=== PATIENT | female | born 1950 | race Caucasian/White ===

== ENCOUNTER 2016-08-11 15:00 | Emergency (ER) | payer MEDICARE, OTHER ==
[~2016-08-11] VITALS: Ht 175.3 cm; Wt 80.0 kg
[~2016-08-11 15:00] MED LIST: BACT800T5 PO; CLOT1CRE TOP; MUPI2%T TOP
[2016-08-11 15:03] VITALS: BP 134/75; PULSE 86; RESP 15; TEMP 98.2; O2SAT 96
--- NOTE | 2016-08-11 16:49 | PD ---
HPI Chief Complaint: Edema Time Seen by Provider: 16:45 Travel History International Travel<30 days: No Contact w/Intl Traveler<30days: No Traveled to known affect area: No History of Present Illness HPI 66-year-old female presents to the emergency department for evaluation of right leg swelling and left wrist pain. The patient states that for the past 4 days she has had worsening swelling and pain in her right lower leg. States that the leg feels "heavy" and "sore." States that the pain is aggravated with walking, some of the swelling was alleviated with elevation last night. States that she has also had pain in the left wrist and swelling over the past week, states that the swelling in the wrist has almost resolved but the pain has persisted, aggravated with movement. Patient also mentioned she had an episode of hematuria 2 days ago. States that she had 2 episodes of heart palpitations lasting 10 minutes and resolving on its own earlier this week. She denies any fever, chills, nausea, vomiting, lightheadedness, dizziness, chest pain, shortness of breath, numbness or tingling, weakness, abdominal pain. The patient denies any history of blood clots or heart disease. She does admit to having to vein stripping surgeries in the past on the right leg for varicose veins. No other complaints. PFSH Past Medical History Depression: Yes Diminished Hearing: No Gastrointestinal Disorders: Yes (DIVERITCULITIS) ?: Not Menopausal: Yes Past Surgical History Other Surgery: Yes (Varicose vein stripping right leg x 2) Social History Alcohol Use: No Tobacco Use: No Substance Use: No Allergies-Medications (Allergen,Severity, Reaction): Coded Allergies: Contrast Media (Verified Allergy, Severe, Hypotension, 08/11/16) Reported Meds & Prescriptions Reported Meds & Active Scripts Active No Active Prescriptions or Reported Medications Review of Systems Except as stated in HPI: all other systems reviewed are Neg Physical Exam Narrative GENERAL: Well-nourished and well-developed pleasant female patient in no acute distress who is nontoxic appearing. SKIN: Warm and dry. HEAD: Normocephalic and atraumatic. EYES: No injection, drainage, or hyphema noted. PERRLA. EOMI. ENT: No nasal drainage noted. Oropharynx is clear. NECK: Supple and the trachea is midline. CARDIOVASCULAR: Regular rate and rhythm. RESPIRATORY: Breath sounds are equal bilaterally with no accessory muscle use, wheezing, rhonchi, or crackles. GASTROINTESTINAL: Abdomen is soft, non-tender, and nondistended. MUSCULOSKELETAL: Varicose veins noted in right leg. Right ankle and lower leg swollen with mild tenderness to palpation. No obvious deformities, cyanosis, or ecchymosis is present throughout the upper and lower extremities. Patient has full range of motion without any signs of neurovascular compromise. NEUROLOGICAL: Awake, alert, and oriented. Normal speech and gait. Cranial nerves are grossly intact. Data Data Last Documented VS Vital Signs Date Time Temp Pulse Resp B/P Pulse Ox O2 Delivery O2 Flow Rate FiO2 08/11/16 15:03 98.2 86 15 134/75 96 Orders Urinalysis - C+S If Indicated (08/11/16 16:43) Us Leg Venous Doppler (08/11/16 ) Electrocardiogram (08/11/16 16:43) Wrist, Complete ([id number]) (08/11/16 16:43) Labs Laboratory Tests Test 08/11/16 16:50 Urine Color YELLOW Urine Turbidity CLEAR Urine pH 6.5 Urine Specific [place] 1.020 Urine Protein NEG mg/dL Urine Glucose (UA) NEG mg/dL Urine Ketones NEG mg/dL Urine Occult Blood TRACE Urine Nitrite NEG Urine Bilirubin NEG Urine Urobilinogen LESS THAN 2.0 MG/DL Urine Leukocyte Esterase NEG Urine WBC 1 /hpf Urine Squamous Epithelial <1 /hpf Cells Microscopic Urinalysis Comment CULT NOT INDICATED MDM Medical Decision Making Medical Screen Exam Complete: Yes Emergency Medical Condition: Yes Differential Diagnosis Dependent edema versus varicose veins versus DVT versus cystitis versus other Narrative Course 66-year-old female presents to the emergency department for evaluation of right lower extremity swelling. Patient is afebrile, vital signs are stable. She is also complaining of left wrist pain, hematuria that happened a few days ago and 2 episodes of heart palpitations this week. Physical examination does show that her right lower extremity is swollen when compared to the left. She does have a history of varicose pains in the right leg and has had 2 previous vein stripping surgeries on the right leg. We'll do an ultrasound to rule out DVT. Urinalysis, EKG and x-ray of the left wrist as well. EKG shows normal sinus rhythm with no acute ST elevations or depressions. X-ray of the left wrist shows degenerative changes, no acute abnormalities. Urinalysis shows trace occult blood but is otherwise unremarkable. Ultrasound of the right lower extremity is negative for DVT. The patient that the edema in her right leg is likely secondary to varicose veins. Discussed all results with the patient. She will be given a prescription for naproxen and discussed supportive care. She is instructed to follow with her PCP. Patient verbalizes understanding and agreement with treatment plan. Diagnosis Primary Impression: Varicose veins of right lower extremity with edema Additional Impression: Left wrist pain Referrals: Primary Care Physician Patient Instructions: General Instructions Additional Instructions: Elevate right leg. Take medication as prescribed with food and a full glass of water. Follow-up with your Primary Care Physician. Return to the ED for any acute worsening of symptoms. Med/Other Pt SpecificInfo: Prescription(s) given Scripts Naproxen 500 Mg [id number] Mg PO BID 7 Days Ref 0 Prov:Charlie Porras MD 08/11/16 Disposition: 01 DISCHARGE HOME Condition: Stable Felicita Dey Aug 11, 2016 16:49
[2016-08-11 17:23] LABS: BLOOD, URINE TRACE (NEG); COMMENT (UR) CULT NOT INDICATED; CULTURE IF INDICATED CULT NOT INDICATED; GLUCOSE,URINE NEG (NEG); KETONE, URINE NEG (NEG); NITRITE,URINE NEG (NEG); PH, URINE 6.5 (5.0-8.5); SQUAMOUS EPITHELIAL CELL URINE <1 /hpf (0-5); URINE COLOR YELLOW (YELLW/STRAW)
--- NOTE | 2016-08-11 17:35 | RADRPT ---
EXAM DATE/TIME: 08/11/2016 17:30 [facility] COMPARISON: No previous studies available for comparison. INDICATIONS : Nontraumatic left wrist swelling for four days. MEDICAL HISTORY : None. SURGICAL HISTORY : None. ENCOUNTER: Initial ACUITY: 1 day PAIN SCORE: 110 LOCATION: Left wrist FINDINGS: Moderate degenerative changes are evident without fracture. Alignment anatomic. CONCLUSION: Negative for fracture. Moderate degenerative changes are noted. Wally Salgado MD FACR on August 11, 2016 at 17:33 Board Certified Radiologist. This report was verified electronically.
--- NOTE | 2016-08-11 18:03 | RADRPT ---
EXAM DATE/TIME: 08/11/2016 17:29 [facility] COMPARISON: No previous studies available for comparison. INDICATIONS : Right leg swelling. MEDICAL HISTORY : Diverticulitis. Depression. SURGICAL HISTORY : Right leg varicose vein stripping x2. ENCOUNTER: Initial ACUITY: 1 week PAIN SCORE: 2/10 LOCATION: Right leg. TECHNIQUE: Venous ultrasound of the leg was performed from the inguinal ligament to the proximal calf. Real-omari e, color Doppler and spectral tracing, compression and augmentation techniques were used. FINDINGS: There is normal compressibility of the deep venous system from the inguinal region to the proximal ca lf. No echogenic clot is seen in the lumen of the common femoral, femoral, popliteal, and posterior tibial veins. There is a normal response of the venous system to proximal and distal augmentation an d respiration. CONCLUSION: Negative for DVT . Wally Salgado MD FACR on August 11, 2016 at 18:01 Board Certified Radiologist. This report was verified electronically.
[2016-08-11] MEDS ORDERED: NAPR500T PO (18:23)
--- NOTE | 2016-08-12 19:36 | EKG ---
Date Performed: 08/11/2016 Time Performed: 17:08:24 PTAGE: 66 years EKG: Sinus rhythm POSSIBLE LEFT ATRIAL ENLARGEMENT POSSIBLE RIGHT VENTRICULAR CONDUCTION DELAY BORDERLINE ECG NO PREVIOUS TRACING DOCTOR: Jose Franco Interpretating Date/Time 08/12/2016 19:32:39
== END 2016-08-11 18:32 | disposition home or self-care (01) ==
LOC: NEPB 15:00
DX: I83.891 Varicose veins of right lower extremity with other complications (principal); M25.532 Pain in left wrist; F32.9 Major depressive disorder, single episode, unspecified
CPT/HCPCS: 73110; 81001; 93005; 93971

== ENCOUNTER 2017-03-18 14:45 | Emergency (ER) | payer MEDICARE, OTHER ==
[~2017-03-18] VITALS: Ht 175.3 cm; Wt 69.0 kg
[~2017-03-18 14:45] MED LIST changes: -BACT800T5 PO; -CLOT1CRE TOP; -MUPI2%T TOP; +NAPR500T PO
[2017-03-18 14:56] VITALS: BP 129/60; PULSE 84; RESP 16; TEMP 97.8; O2SAT 98
--- NOTE | 2017-03-18 15:55 | PD ---
HPI Chief Complaint: Edema Time Seen by Provider: 15:40 Travel History International Travel<30 days: No Contact w/Intl Traveler<30days: No Traveled to known affect area: No History of Present Illness HPI 66-year-old female patient presents to the ER today for 2 years history of right leg swelling that had worsened in the last 5 weeks, burning on urination and intermittent urinary incontinence for the last year to 2 years, which she states has been checked out in the past but has always been in the ED and she does not have a primary care doctor. She denies any fevers, chest pains, abdominal pains, new back pains, or any other issues. She denies any episodes of recent stool incontinence. Modifying Factors: None Associated Signs & Symptoms: Urinary symptoms for the last year or 2, right leg swelling for the last 2 years, symptoms worsened in the past few weeks Risk Factors: None PFSH Past Medical History Depression: Yes Diminished Hearing: No Gastrointestinal Disorders: Yes (DIVERITCULITIS) Tetanus Vaccination: > 5 Years Influenza Vaccination: Yes Menopausal: Yes Past Surgical History Other Surgery: Yes (Varicose vein stripping right leg x 2) Social History Alcohol Use: No Tobacco Use: No Substance Use: No Allergies-Medications (Allergen,Severity, Reaction): Coded Allergies: diatrizoate meglumine (Unverified Allergy, Severe, Hypotension, 03/18/17) gadobenic acid (Unverified Allergy, Severe, Hypotension, 03/18/17) gadodiamide (Unverified Allergy, Severe, Hypotension, 03/18/17) gadoteridol (Unverified Allergy, Severe, Hypotension, 03/18/17) iodixanol (Unverified Allergy, Severe, Hypotension, 03/18/17) iohexol (Unverified Allergy, Severe, Hypotension, 03/18/17) Reported Meds & Prescriptions Reported Meds & Active Scripts Active No Active Prescriptions or Reported Medications Review of Systems Except as stated in HPI: all other systems reviewed are Neg Physical Exam Narrative GENERAL: Well-developed elderly white female patient currently in mild distress. Awake and oriented 3. SKIN: Focused skin assessment warm/dry. HEAD: Atraumatic. Normocephalic. EYES: Pupils equal and round. No scleral icterus. No injection or drainage. ENT: No nasal bleeding or discharge. Mucous membranes pink and moist. NECK: Trachea midline. No JVD. CARDIOVASCULAR: Regular rate and rhythm. No murmur appreciated. RESPIRATORY: No accessory muscle use. Clear to auscultation. Breath sounds equal bilaterally. GASTROINTESTINAL: Abdomen soft, non-tender, nondistended. Hepatic and splenic margins not palpable. MUSCULOSKELETAL: No obvious deformities. No clubbing. No cyanosis. No edema. EXTREMITIES: No clubbing, cyanosis. There is notable right lower leg erythema and edema with tenderness on palpation. No joint tenderness, effusion, or edema noted. No calf tenderness. Bilateral Homans sign negative. NEUROLOGICAL: Awake and alert. No obvious cranial nerve deficits. Motor grossly within normal limits. Normal speech. PSYCHIATRIC: Appropriate mood and affect; insight and judgment normal. Data Data Last Documented VS Vital Signs Date Time Temp Pulse Resp B/P (MAP) Pulse Ox O2 Delivery O2 Flow Rate FiO2 03/18/17 14:56 97.8 84 16 129/60 (83) 98 Orders Orders Complete Blood Count With Diff (03/18/17 15:40) Comprehensive Metabolic Panel (03/18/17 15:40) Prothrombin Time / Inr (Pt) (03/18/17 15:40) Urinalysis - C+S If Indicated (03/18/17 15:40) Us Leg Venous Doppler (03/18/17 15:40) Labs Laboratory Tests Test 03/18/17 16:00 03/18/17 16:10 White Blood Count 5.1 TH/MM3 Red Blood Count 3.64 MIL/MM3 Hemoglobin 10.4 GM/DL Hematocrit 32.2 % Mean Corpuscular Volume 88.6 FL Mean Corpuscular Hemoglobin 28.5 PG Mean Corpuscular Hemoglobin Concent 32.1 % Red Cell Distribution Width 15.3 % Platelet Count 227 TH/MM3 Mean Platelet Volume 8.7 FL Neutrophils (%) (Auto) 52.4 % Lymphocytes (%) (Auto) 34.1 % Monocytes (%) (Auto) 5.8 % Eosinophils (%) (Auto) 6.3 % Basophils (%) (Auto) 1.4 % Neutrophils # (Auto) 2.7 TH/MM3 Lymphocytes # (Auto) 1.7 TH/MM3 Monocytes # (Auto) 0.3 TH/MM3 Eosinophils # (Auto) 0.3 TH/MM3 Basophils # (Auto) 0.1 TH/MM3 CBC Comment DIFF FINAL Differential Comment Prothrombin Time 10.7 SEC Prothromb Time International Ratio 1.0 RATIO Blood Urea Nitrogen 21 MG/DL Creatinine 0.73 MG/DL Random Glucose 78 MG/DL Total Protein 7.2 GM/DL Albumin 3.9 GM/DL Calcium Level 9.2 MG/DL Alkaline Phosphatase 76 U/L Aspartate Amino Transf (AST/SGOT) 18 U/L Alanine Aminotransferase (ALT/SGPT) 17 U/L Total Bilirubin 0.3 MG/DL Sodium Level 142 MEQ/L Potassium Level 3.4 MEQ/L Chloride Level 106 MEQ/L Carbon Dioxide Level 30.7 MEQ/L Anion Gap 5 MEQ/L Estimat Glomerular Filtration Rate 80 ML/MIN Urine Collection Type VOIDED Urine Color YELLOW Urine Turbidity CLEAR Urine pH 7.0 Urine Specific [place] 1.030 Urine Protein NEG mg/dL Urine Glucose (UA) 1000 OR GREATER mg/dL Urine Ketones NEG mg/dL Urine Occult Blood NEG Urine Nitrite NEG Urine Bilirubin NEG Urine Leukocyte Esterase NEG Urine Mucus FEW /lpf Microscopic Urinalysis Comment CULT NOT INDICATED MDM Medical Decision Making Medical Screen Exam Complete: Yes Emergency Medical Condition: Yes Medical Record Reviewed: Yes Interpretation(s) Laboratory Tests Test 03/18/17 16:00 03/18/17 16:10 Red Blood Count 3.64 MIL/MM3 (4.00-5.30) Hemoglobin 10.4 GM/DL (11.6-15.3) Hematocrit 32.2 % (35.0-46.0) Eosinophils (%) (Auto) 6.3 % (0.0-4.0) Blood Urea Nitrogen 21 MG/DL (7-18) Potassium Level 3.4 MEQ/L (3.5-5.1) Estimat Glomerular Filtration Rate 80 ML/MIN (>89) Urine Glucose (UA) 1000 OR GREATER mg/dL Urine Mucus FEW /lpf (OCC) Differential Diagnosis Leg edema: Dependent edema versus cellulitis versus DVT, urinary symptoms: UTI versus stress incontinence Narrative Course Ultrasound did not show any signs of DVT. Lab work did not show significant leukocytosis and no UTI. At this point, she has no focal neurological deficits and it appears that her symptoms of been going on for at least 1 or 2 years. At this point, I do not see any signs of acute processes. I told patient that she should follow-up for ongoing processes without a primary care physician. Return for new issues as needed. The plan has been discussed with her and she states understanding. In addition, her right leg does show some erythema which could be secondary to underlying mild cellulitis on top of chronic venous stasis. My plan would be to give her some antibiotics as precaution. Diagnosis Primary Impression: Cellulitis of right leg Med/Other Pt SpecificInfo: Prescription(s) given Scripts Cephalexin (Keflex) 500 Mg Cap 500 MG PO Q6H for Infection for 7 Days, CAP 0 Refills Prov: Reuben Mathews MD 03/18/17 Disposition: DISCHARGE HOME Condition: Stable Reuben Mathews MD Mar 18, 2017 15:55
[2017-03-18 16:08] LABS: AUTOMATED NEUTROPHIL # 2.7 TH/MM3 (1.8-7.7); BASOPHIL # 0.1 TH/MM3 (0-0.2); BASOPHIL % 1.4 % (0.0-2.0); EOSINOPHIL # 0.3 TH/MM3 (0-0.4); EOSINOPHIL % 6.3 % (0.0-4.0); HEMATOCRIT 32.2 % (35.0-46.0); HEMO FLAGS DIFF FINAL; LYMPH % 34.1 % (9.0-44.0); LYMPHOCYTE # 1.7 TH/MM3 (1.0-4.8); MEAN CELL VOLUME 88.6 FL (80.0-100.0); MEAN CORPUSCULAR HEMOGLOBIN 28.5 PG (27.0-34.0); MEAN CORPUSCULAR HGB CONC 32.1 % (32.0-36.0); MONO % 5.8 % (0.0-8.0); NEUT % 52.4 % (16.0-70.0); PLATELET COUNT 227 TH/MM3 (150-450); RED BLOOD COUNT 3.64 MIL/MM3 (4.00-5.30); RED CELL DISTRIBUTION WIDTH 15.3 % (11.6-17.2); WHITE BLOOD COUNT 5.1 TH/MM3 (4.0-11.0)
[2017-03-18 16:18] LABS: CHLORIDE 106 MEQ/L (98-107); POTASSIUM 3.4 MEQ/L (3.5-5.1); SODIUM (NA) 142 MEQ/L (136-145)
[2017-03-18 16:22] LABS: ANION GAP 5 MEQ/L (5-15); BICARBONATE 30.7 MEQ/L (21.0-32.0); BLOOD UREA NITROGEN 21 MG/DL (7-18)
[2017-03-18 16:23] LABS: PROTHROMBIN TIME - PATIENT 10.7 SEC (9.8-11.6)
[2017-03-18 16:25] LABS: ALT (GPT) 17 U/L (10-53); AST (GOT) 18 U/L (15-37); GLOMERULAR FILTRATION RATE 80 ML/MIN (>89)
[2017-03-18 16:25] LABS: BLOOD, URINE NEG (NEG); GLUCOSE,URINE 1000 OR GREATER mg/dL (NEG); KETONE, URINE NEG (NEG); NITRITE,URINE NEG (NEG)
[2017-03-18 16:27] LABS: TOTAL BILIRUBIN ADULT 0.3 MG/DL (0.2-1.0)
[2017-03-18 16:28] LABS: ALKALINE PHOSPHATASE 76 U/L (45-117)
--- NOTE | 2017-03-18 16:33 | RADRPT ---
EXAM DATE/TIME: 03/18/2017 16:07 [facility] COMPARISON: No previous studies available for comparison. INDICATIONS : Right leg swelling. MEDICAL HISTORY : Diverticulitis. Depression. SURGICAL HISTORY : Varicose vein stripping right leg X 2. ENCOUNTER: Subsequent ACUITY: 4 - 6 days PAIN SCORE: 4/10 LOCATION: Right leg TECHNIQUE: Venous ultrasound of the leg was performed from the inguinal ligament to the proximal calf. Real-omari e, color Doppler and spectral tracing, compression and augmentation techniques were used. FINDINGS: There is normal compressibility of the deep venous system from the inguinal region to the proximal ca lf. No echogenic clot is seen in the lumen of the common femoral, femoral, popliteal, and posterior tibial veins. There is a normal response of the venous system to proximal and distal augmentation an d respiration. CONCLUSION: Normal examination. Kin Chaidez MD on March 18, 2017 at 16:31 Board Certified Radiologist. This report was verified electronically.
[2017-03-18 16:42] LABS: METHOD OF COLLECTION VOIDED; URINE COLOR YELLOW (YELLW/STRAW)
[2017-03-18 16:49] LABS: MUCUS URINE FEW /lpf (OCC)
[2017-03-18 16:50] LABS: COMMENT (UR) CULT NOT INDICATED; CULTURE IF INDICATED CULT NOT INDICATED
[2017-03-18] MEDS ORDERED: CEPH-460 PO (16:54)
[2017-03-18 17:10] VITALS: BP 118/68; PULSE 88; RESP 16; O2SAT 98
== END 2017-03-18 17:15 | disposition home or self-care (01) ==
LOC: PHED 14:45
DX: L03.115 Cellulitis of right lower limb (principal)
CPT/HCPCS: 80053; 81001; 85025; 85610; 93971; 99285

== ENCOUNTER 2017-09-11 17:13 | Emergency (ER) | payer OTHER ==
[~2017-09-11 17:13] MED LIST changes: +CEPH-460 PO; -NAPR500T PO
== END 2017-09-11 17:25 | disposition left against medical advice (07) ==
LOC: PHED 17:13
DX: Z53.21 Procedure and treatment not carried out due to patient leaving prior to being seen by health care provider (principal)
CPT/HCPCS: 99281

== ENCOUNTER 2018-02-20 14:50 | Inpatient (IN) ==
[2018-02-20] MEDS ORDERED: Sod Chloride 0.9% Inj 1,000 ML IV.SIG ONE (15:19)
--- NOTE | 2018-02-20 15:23 | ED ---
HPI General Chief Complaint: Weakness Stated Complaint: Weakness Time Seen by Provider: 02/20/18 15:19 Source: patient Mode of arrival: ambulatory Limitations: no limitations History of Present Illness HPI Narrative: 67-year-old female patient presents to the ER today because she states that she has been out in the heat, walking around and started feeling weak and lightheaded. She states that she has been having some intermittent palpitations as well. She denies any chest pains, shortness of breath, vomiting , diarrhea, or other symptoms. She states that she has been foreclosed on is currently in between places to stay. She states that she feels fairly tired and has been nodding off because she has been trying to find places to stay overnight. Related Data Allergies Allergy/AdvReac Type Severity Reaction Status Date / Time diatrizoate meglumine Allergy Severe Hypotension Unverified 03/18/17 14:58 gadobenic acid Allergy Severe Hypotension Unverified 03/18/17 14:58 gadodiamide Allergy Severe Hypotension Unverified 03/18/17 14:58 gadoteridol Allergy Severe Hypotension Unverified 03/18/17 14:58 iodixanol Allergy Severe Hypotension Unverified 03/18/17 14:58 iohexol Allergy Severe Hypotension Unverified 03/18/17 14:58 Review of Systems Except as stated in HPI: all other systems reviewed are negative PMFSH History History Provided By: Patient Social History Social History Substance History: No History of Abuse Second Hand Smoke Exposure: No Smoking Status: Never smoker How Often Do You Have a Drink Containing Alcohol: Never Recent Travel in [facility] within the Last 8 Weeks: No Recent Out of Country Travel within the Last 8 Weeks: No Exam Narrative Exam Narrative: GENERAL: Well-developed elderly female patient currently in mild distress. Awake and oriented 3. SKIN: Focused skin assessment warm/dry. HEAD: Atraumatic. Normocephalic. EYES: Pupils equal and round. No scleral icterus. No injection or drainage. ENT: No nasal bleeding or discharge. Mucous membranes pink and moist. NECK: Trachea midline. No JVD. CARDIOVASCULAR: Regular rate and rhythm. No murmur appreciated. RESPIRATORY: No accessory muscle use. Clear to auscultation. Breath sounds equal bilaterally. GASTROINTESTINAL: Abdomen soft, non-tender, nondistended. Hepatic and splenic margins not palpable. MUSCULOSKELETAL: No obvious deformities. No clubbing. No cyanosis. No edema. NEUROLOGICAL: Awake and alert. No obvious cranial nerve deficits. Motor grossly within normal limits. Normal speech. PSYCHIATRIC: Appropriate mood and affect; insight and judgment normal. Course Hospital Course: Lab work looks quite abnormal, hyponatremic, hypokalemic, hypochloremic, hypocalcemic. IV fluids, potassium supplementation, and calcium supplementation were ordered for the patient. At this point, plan would be to admit the patient for further evaluation and treatment. Case was discussed with Dr. Daugherty who would like the patient to get a repeat lab work just to make sure the derangements are real. He accepts the patient for admission. Initial Documented Vital Signs Temperature 98.4 F 02/20/18 15:22 Pulse Rate 81 02/20/18 15:22 Respiratory Rate 18 02/20/18 15:22 Blood Pressure 122/62 02/20/18 15:22 Pulse Oximetry 97 02/20/18 15:22 Last Documented Vital Signs Temperature 98.4 F 02/20/18 15:22 Pulse Rate 79 02/20/18 15:25 Respiratory Rate 18 02/20/18 15:25 Blood Pressure 122/62 02/20/18 15:25 Pulse Oximetry 97 02/20/18 15:25 Medical Decision Making Differential Diagnosis Differential Diagnosis: Dehydration versus electrolyte abnormalities versus dysrhythmias Lab Data Result diagrams: 02/20/18 15:25 02/20/18 15:25 Lab Results 02/20/18 02/20/18 Range/Units 15:25 15:25 WBC 5.6 (4.0-11.0) th/mm3 RBC 3.60 L (4.00-5.30) mil/mm3 Hgb 10.2 L (11.6-15.3) gm/dL Hct 31.1 L (35.0-46.0) % MCV 86.6 (80.0-100.0) fL MCH 28.5 (27.0-34.0) pg MCHC 32.9 (32.0-36.0) % RDW 14.6 (11.6-17.2) % Plt Count 235 (150-450) th/mm3 MPV 9.5 (7.0-11.0) fL Neut % (Auto) 68.7 (16.0-70.0) % Lymph % (Auto) 21.8 (9.0-44.0) % [place] % (Auto) 6.1 (0.0-8.0) % Eos % (Auto) 2.2 (0.0-4.0) % Baso % (Auto) 1.2 (0.0-2.0) % Neut # (Auto) 3.9 (1.8-7.7) th/mm3 Lymph # (Auto) 1.2 (1.0-4.8) th/mm3 [place] # (Auto) 0.3 (0.0-0.9) th/mm3 Eos # (Auto) 0.1 (0.0-0.4) th/mm3 Baso # (Auto) 0.1 (0.0-0.2) th/mm3 WBC Differential . Differential Comment Auto diff final Sodium 151 H (136-145) meq/L Potassium 2.1 L* (3.5-5.1) meq/L Chloride 123 H (98-107) meq/L Carbon Dioxide 20.6 L (21.0-32.0) meq/L Anion Gap 7 (5-15) meq/L BUN 14 (7-18) mg/dL Creatinine 0.51 (0.50-1.00) mg/dL Estimated GFR Greater than 89 (>89) mL/min Random Glucose 116 H (74-106) mg/dL Calcium 5.6 L* (8.5-10.1) mg/dL Prot Corrected Calcium 6.9 L* (8.5-10.1) mg/dL Troponin I Less than 0.02 L (0.02-0.05) ng/mL Total Protein 4.1 L (6.4-8.2) g/dL Discharge Plan Discharge Disposition Patient Disposition: 30 Still Patient Discharge Condition Condition: Stable Discharge Details Anticipated Discharge Date: 02/20/18 Diagnosis: Dehydration, Acute hypernatremia, Hypokalemia Physicians Team ED Provider: Reuben Mahtews Primary Care Provider: UNKNOWN, Discharge Interventions Interventions: Vital Signs Last Done: 02/20/18 17:02 Status ED Status: With Doctor
[2018-02-20 15:47] LABS: Baso # (Auto) 0.1 th/mm3 (0.0-0.2); Baso % (Auto) 1.2 % (0.0-2.0); Eos # (Auto) 0.1 th/mm3 (0.0-0.4); Eos % (Auto) 2.2 % (0.0-4.0); Hematocrit 31.1 % (35.0-46.0); Hemoglobin 10.2 gm/dL (11.6-15.3); Lymph # (Auto) 1.2 th/mm3 (1.0-4.8); Lymph % (Auto) 21.8 % (9.0-44.0); Mean Corpuscular HGB Conc 32.9 % (32.0-36.0); Mean Corpuscular Hemoglobin 28.5 pg (27.0-34.0); Mean Corpuscular Volume 86.6 fL (80.0-100.0); Mean Platelet Volume 9.5 fL (7.0-11.0); Mono # (Auto) 0.3 th/mm3 (0.0-0.9); Mono % (Auto) 6.1 % (0.0-8.0); Neut # (Auto) 3.9 th/mm3 (1.8-7.7); Neut % (Auto) 68.7 % (16.0-70.0); Platelet Count 235 th/mm3 (150-450); Red Cell Distribution Width 14.6 % (11.6-17.2); White Blood Count 5.6 th/mm3 (4.0-11.0)
[2018-02-20 16:14] LABS: Anion Gap 7 meq/L (5-15); Blood Urea Nitrogen 14 mg/dL (7-18); Calcium 5.6 mg/dL (8.5-10.1); Carbon Dioxide 20.6 meq/L (21.0-32.0); Chloride 123 meq/L (98-107); Glomerular Filtration Rate Greater Than 89 mL/min (>89); Glucose,Random 116 mg/dL (74-106); Sodium 151 meq/L (136-145)
[2018-02-20 16:20] LABS: Potassium 2.1 meq/L (3.5-5.1)
[2018-02-20] MEDS ORDERED: Potassium Chloride 25 MEQ Effervescent Tablet PO ONE (16:32)
[2018-02-20 16:36] LABS: Total Protein 4.1 g/dL (6.4-8.2)
[2018-02-20] MEDS ORDERED: Calcium Gluconate Inj 2 GM in Sodium Chlor 0.9% Inj 100 ML IV.SIG ONE (16:54)
[2018-02-20] MEDS: Potassium Chloride Inj 30 MEQ in Sod Chloride 0.9% Inj 1,000 ML IV.CONT SCH (17:15)
[2018-02-20] MEDS ORDERED: Temazepam 15 MG Capsule PO PRN (17:24)
[2018-02-20] MEDS ORDERED: KCL 20 mEq/D5W/NaCl 0.45% Inj 1,000 ML IV.CONT SCH (17:30)
[2018-02-20 17:57] LABS: Alanine Aminotransferase 19 U/L (10-53); Albumin 3.6 g/dL (3.4-5.0); Alkaline Phosphatase 102 U/L (45-117); Anion Gap 7 meq/L (5-15); Aspartate Aminotransferase 26 U/L (15-37); Blood Urea Nitrogen 19 mg/dL (7-18); Carbon Dioxide 26.3 meq/L (21.0-32.0); Chloride 108 meq/L (98-107); Glomerular Filtration Rate 58 mL/min (>89); Glucose,Random 104 mg/dL (74-106); Potassium 3.7 meq/L (3.5-5.1); Sodium 141 meq/L (136-145); Total Protein 7.2 g/dL (6.4-8.2)
[2018-02-20] MEDS ORDERED: Bisacodyl 10 MG Supp RECTAL PRN (18:00)
--- NOTE | 2018-02-20 19:11 | P.HPIM ---
History of Present Illness Primary Care Physician: UNKNOWN History of Present Illness: 67-year-old female with no significant past medical history other than varicose veins in the right lower extremity who presents with a 1 day history of lightheadedness and somnolence. She was recently evicted from her house due to foreclosure on Friday, has been staying at hotels and spent all day walking up and down the road, waiting at the bus stop, waiting for car to get fixed. sHe says she was sweating profusely as a temperature outside was 92. She denies any fevers, chills, chest pain, shortness of breath. She does endorse lightheadedness, fatigue, somnolence today. Denies passing out. She denies any nausea, vomiting. Inpatient Certification: I certify that the inpatient services were ordered in accordance with Medicare regulations governing the order. This includes certification that hospital inpatient services are reasonable and necessary and in the case of services not specified as inpatient-only under 42 CFR 419.22(n), that they are appropriately provided as inpatient services in accordance to with the 2-midnight benchmark under 43 CFR 412.3(e) Estimated Total Length of Stay (Days): 2 Plans for Post Hospital Care: Home Review of Systems All other systems reviewed negative except as stated in HPI PMFSH - History History Provided By: Patient - Tobacco History Second Hand Smoke Exposure: No Tobacco Use In Past 30 Days: No Smoking Status: Never smoker - Alcohol History How Often Do You Have a Drink Containing Alcohol: Never - Substance Use History Substance History: No History of Abuse - Travel History Recent Travel in the [place] Within the Last 8 Weeks: No Recent Travel Out of the Country Within the Last 8 Weeks: No - Immunization History Tetanus Immunization: Unsure Hx Influenza Vaccine This Season: Yes Medications and Allergies Active Medications: Active Medications Al Hydroxide/Mg Hydroxide (Milk Of Magnesia Liq) 30 ml PO Q12HR PRN PRN Reason: Mild Constipation Bisacodyl (Dulcolax Supp) 10 mg RECTAL DAILY PRN PRN Reason: SEVERE CONSITIPATION Potassium Chloride 30 meq/ (Sodium Chloride) 1,015 mls @ 125 mls/hr IV.CONT .Q8H8M [facility] Last Admin: 02/20/18 17:15 Dose: 125 mls/hr Potassium Chloride/Dextrose/Sod Cl (D5w/1/2ns + Kcl 20 Meq Inj) 1,000 mls @ 100 mls/hr IV.CONT .Q10H TRISH Lactulose (Lactulose Liq) 30 ml PO DAILY PRN PRN Reason: SEVERE CONSITIPATION Senna/Docusate Sodium (Lorin-Colace) 1 tab PO BID TRISH Sennosides (Senokot) 17.2 mg PO Q12HR PRN PRN Reason: Moderate Constipation Sodium Chloride (Ns Flush) 2 ml IV.FLUSH PRN PRN PRN Reason: FLUSH AFTER USING IV ACCESS Temazepam (Restoril) 15 mg PO HS PRN PRN Reason: INSOMNIA Allergies Allergy/AdvReac Type Severity Reaction Status Date / Time diatrizoate meglumine Allergy Severe Hypotension Unverified 03/18/17 14:58 gadobenic acid Allergy Severe Hypotension Unverified 03/18/17 14:58 gadodiamide Allergy Severe Hypotension Unverified 03/18/17 14:58 gadoteridol Allergy Severe Hypotension Unverified 03/18/17 14:58 iodixanol Allergy Severe Hypotension Unverified 03/18/17 14:58 iohexol Allergy Severe Hypotension Unverified 03/18/17 14:58 Exam Vital signs: Vital Signs 02/20/18 15:22 02/20/18 15:25 02/20/18 17:02 Temperature 98.4 F Pulse Rate 81 79 75 Respiratory Rate 18 18 18 Blood Pressure 122/62 122/62 124/68 Pulse Oximetry 97 97 97 Intake & Output 02/20/18 02/20/18 02/21/18 06:59 18:59 06:59 Intake Total 1000 / 1000 Balance 1000 / 1000 Weight 74.843 kg Intake: IV 1000 / 1000 NS Inj 1,000 ML @ Wide Open IV. 1000 / 1000 SIG BOLUS ONE Rx#:[id number] Narrative: GENERAL: Patient sitting up in bed. Appears somnolent. Wakes up for exam and is oriented 3. SKIN: Warm and dry. HEAD: Atraumatic. Normocephalic. EYES: Pupils equal and round. No scleral icterus. No injection or drainage. ENT: No nasal bleeding or discharge. Mucous membranes pink and moist. NECK: Trachea midline. No JVD. CARDIOVASCULAR: Regular rate and rhythm. RESPIRATORY: No accessory muscle use. Clear to auscultation. Breath sounds equal bilaterally. GASTROINTESTINAL: Abdomen soft, non-tender, nondistended. Hepatic and splenic margins not palpable. MUSCULOSKELETAL: Extremities without clubbing, cyanosis. No obvious deformities. +1 right lower extremity edema. NEUROLOGICAL: Awake and alert. No obvious cranial nerve deficits. Motor grossly within normal limits. Five out of 5 muscle strength in the arms and legs. Normal speech. PSYCHIATRIC: Appropriate mood and affect; insight and judgment normal. Results - Labs CBC & Chem 7: 02/20/18 15:25 02/20/18 17:11 Labs: Short CBC 02/20/18 Range/Units 15:25 WBC 5.6 (4.0-11.0) th/mm3 Hgb 10.2 L (11.6-15.3) gm/dL Hct 31.1 L (35.0-46.0) % Plt Count 235 (150-450) th/mm3 BMP 02/20/18 02/20/18 15:25 17:11 Sodium 151 H 141 D Potassium 2.1 L* 3.7 D Chloride 123 H 108 H D Carbon Dioxide 20.6 L 26.3 BUN 14 19 H Creatinine 0.51 0.96 Calcium 5.6 L* 9.0 D Cardiac Enzymes 02/20/18 Range/Units 15:25 Troponin I Less than 0.02 L (0.02-0.05) ng/mL Liver Function 02/20/18 Range/Units 17:11 Total Bilirubin 0.5 (0.2-1.0) mg/dL AST 26 (15-37) U/L ALT 19 (10-53) U/L Alkaline Phosphatase 102 (45-117) U/L Albumin 3.6 (3.4-5.0) g/dL Caprini VTE Risk Assessment Caprini VTE Risk Assessment: Moderate/High Risk (score >= 2) Caprini Risk Assessment Model: Point Value = 1 Point Value = 2 Point Value = 3 Point Value = 5 Age 41-60 Minor surgery BMI > 25 kg/m2 Swollen legs Varicose veins or History of unexplained or recurrent spontaneous Oral contraceptives or hormone replacement Sepsis (< 1 month) Serious lung disease, including pneumonia (< 1 month) Abnormal pulmonary function Acute myocardial infarction Congestive heart failure (< 1 month) History of inflammatory bowel disease Medical patient at bed rest Age 61-74 Arthroscopic surgery Major open surgery (> 45 min) Laparoscopic surgery (> 45 min) Malignancy Confined to bed (> 72 hours) Immobilizing plaster cast Central venous access Age >= 75 History of VTE Family history of VTE Factor V Leiden Prothrombin [id number] Lupus anticoagulant Anticardiolipin antibodies Elevated serum homocysteine Heparin-induced thrombocytopenia Other congenital or acquired thrombophilia Stroke (< 1 month) Elective arthroplasty Hip, pelvis, or leg fracture Acute spinal cord injury (< 1 month) Prophylaxis Regimen: Total Risk Factor Score Risk Level Prophylaxis Regimen 0-1 Low Early ambulation 2 Moderate Order ONE of the following: *Sequential Compression Device (SCD) *Heparin 5000 units SQ BID 3-4 Higher Order ONE of the following medications: *Heparin 5000 units SQ TID *Enoxaparin/Lovenox 40 mg SQ daily (WT < 150 kg, CrCl > 30 mL/min) *Enoxaparin/Lovenox 30 mg SQ daily (WT < 150 kg, CrCl > 10-29 mL/min) *Enoxaparin/Lovenox 30 mg SQ BID (WT < 150 kg, CrCl > 30 mL/min) AND/OR *Sequential Compression Device (SCD) 5 or more Highest Order ONE of the following medications: *Heparin 5000 units SQ TID (Preferred with Epidurals) *Enoxaparin/Lovenox 40 mg SQ daily (WT < 150 kg, CrCl > 30 mL/min) *Enoxaparin/Lovenox 30 mg SQ daily (WT < 150 kg, CrCl > 10-29 mL/min) *Enoxaparin/Lovenox 30 mg SQ BID (WT < 150 kg, CrCl > 30 mL/min) AND *Sequential Compression Device (SCD) Assessment and Plan - Plan ///Dehydration //Heat exhaustion = Patient previously appeared to have hypokalemia, hypocalcemia, hypoproteinemia but upon further discussion with ER they have agreed to recheck labs which appear normal apart from dehydration. = We will hydrate patient. = Hopefully she is feeling better tomorrow and can be discharged. Discharge Planning: Hopefully feeling better and can discharge tomorrow.
[2018-02-20] MEDS: Senna/Docusate Sodium 8.6/50 MG Tablet PO SCH (21:29)
[2018-02-20 22:32] VITALS: RESP 16
[2018-02-21 02:07] LABS: Bacteria,Urine Rare /hpf; Bilirubin,Urine Negative (Negative); Clarity,Urine Hazy (Clear); Color,Urine Yellow (Yellw/Straw); Glucose,Urine (UA) Negative (Negative); Leukocyte Esterase,Urine Trace (Negative); Mucus,Urine Few /lpf (Occasional); Nitrite,Urine Negative (Negative); Specific Gravity,Urine 1.016 (1.002-1.035); Squamous Epithelial Cell,Urine <1 /hpf (0-5)
[2018-02-21] MEDS: Potassium Chloride Inj 30 MEQ in Sod Chloride 0.9% Inj 1,000 ML IV.CONT SCH (04:05)
[2018-02-21 04:40] VITALS: BP 113/59; TEMP 97.5; O2SAT 97
[2018-02-21 07:24] LABS: Baso # (Auto) 0.1 th/mm3 (0.0-0.2); Baso % (Auto) 1.8 % (0.0-2.0); Eos # (Auto) 0.3 th/mm3 (0.0-0.4); Eos % (Auto) 6.2 % (0.0-4.0); Hematocrit 31.1 % (35.0-46.0); Hemoglobin 10.2 gm/dL (11.6-15.3); Lymph # (Auto) 1.6 th/mm3 (1.0-4.8); Lymph % (Auto) 31.5 % (9.0-44.0); Mean Corpuscular HGB Conc 32.8 % (32.0-36.0); Mean Corpuscular Hemoglobin 28.4 pg (27.0-34.0); Mean Corpuscular Volume 86.5 fL (80.0-100.0); Mean Platelet Volume 9.7 fL (7.0-11.0); Mono # (Auto) 0.3 th/mm3 (0.0-0.9); Neut # (Auto) 2.7 th/mm3 (1.8-7.7); Neut % (Auto) 53.5 % (16.0-70.0); Platelet Count 225 th/mm3 (150-450); Red Cell Distribution Width 15.2 % (11.6-17.2)
[2018-02-21 07:55] LABS: Albumin 3.1 g/dL (3.4-5.0); Anion Gap 7 meq/L (5-15); Aspartate Aminotransferase 18 U/L (15-37); Blood Urea Nitrogen 17 mg/dL (7-18); Calcium 8.6 mg/dL (8.5-10.1); Carbon Dioxide 26.4 meq/L (21.0-32.0); Chloride 112 meq/L (98-107); Glomerular Filtration Rate 82 mL/min (>89); Glucose,Random 104 mg/dL (74-106); Potassium 3.9 meq/L (3.5-5.1); Sodium 145 meq/L (136-145)
[2018-02-21 07:59] LABS: Alanine Aminotransferase 17 U/L (10-53); Alkaline Phosphatase 88 U/L (45-117); Total Protein 6.3 g/dL (6.4-8.2)
[2018-02-21] MEDS: Senna/Docusate Sodium 8.6/50 MG Tablet PO SCH (08:28)
[2018-02-21 13:19] VITALS: PULSE 71
--- NOTE | 2018-02-21 14:06 | P.PNIM ---
Subjective Interval history: Pt seen and examined for f/u of dehydration, hypokalemia, and hypernatremia. She reports she is feeling much better. Tolerating PO and ambulating. No N/V, abdominal pain, CP, SOB. Feels ready to go. Currently she is homeless as her house was foreclosed. Currently working with a realtor for a new house. Feels optimistic but would like to speak to a case picker about possible shelters in the meantime. She has no family or friends in the area. Physical Exam Vital signs: Vital Signs 02/20/18 15:22 02/20/18 15:25 02/20/18 17:02 Temperature 98.4 F Pulse Rate 81 79 75 Respiratory Rate 18 18 18 Blood Pressure 122/62 122/62 124/68 Pulse Oximetry 97 97 97 02/20/18 20:00 02/21/18 00:00 02/21/18 04:00 Temperature 97.7 F 97.9 F 97.5 F L Pulse Rate 69 69 75 Respiratory Rate 16 16 16 Blood Pressure 120/58 L 111/62 113/59 L Pulse Oximetry 98 95 97 02/21/18 08:00 02/21/18 12:26 Temperature Pulse Rate 70 71 Respiratory Rate Blood Pressure Pulse Oximetry Intake & Output 02/20/18 02/21/18 02/21/18 18:59 06:59 18:59 Intake Total 1000 / 1000 1215 / 1215 Output Total 1000 / 1000 Balance 1000 / 1000 215 / 215 Weight 74.843 kg 77.8 kg Intake: IV 1000 / 1000 1015 / 1015 KCl Inj 30 MEQ In NS Inj 1,000 1015 / 1015 ML @ 125 mls/hr IV.CONT .Q8H8M [facility] Rx#:[id number] NS Inj 1,000 ML @ Wide Open IV. 1000 / 1000 SIG BOLUS ONE Rx#:[id number] Oral 200 / 200 Output: Urine 1000 / 1000 Other: Date of Last Bowel Movement 02/20/18 Weight On Admission 77.8 kg Narrative: GENERAL: WN, WD pleasant female sitting up in bed in NAD. SKIN: Warm and dry. HEENT: Pupils equal and round. MMM. HEART: RRR no m/r/g. LUNGS: CTAB without wheezes or crackles. ABDOMEN: +BS, S/NT/ND. EXTREM: No LE edema. 2+ pedal pulses. NEURO: Awake and alert. PSYCH: Appropriate mood and affect. Results - Labs CBC & Chem 7: 02/21/18 06:08 02/21/18 06:08 Laboratory Results - last 24 hr 02/20/18 02/20/18 02/20/18 15:25 15:25 15:25 WBC 5.6 RBC 3.60 L Hgb 10.2 L Hct 31.1 L MCV 86.6 MCH 28.5 MCHC 32.9 RDW 14.6 Plt Count 235 MPV 9.5 Neut % (Auto) 68.7 Lymph % (Auto) 21.8 Sullivan % (Auto) 6.1 Eos % (Auto) 2.2 Baso % (Auto) 1.2 Neut # (Auto) 3.9 Lymph # (Auto) 1.2 Sullivan # (Auto) 0.3 Eos # (Auto) 0.1 Baso # (Auto) 0.1 WBC Differential . Differential Comment Auto diff final Sodium 151 H Potassium 2.1 L* Chloride 123 H Carbon Dioxide 20.6 L Anion Gap 7 BUN 14 Creatinine 0.51 Estimated GFR Greater than 89 Random Glucose 116 H Calcium 5.6 L* Prot Corrected Calcium 6.9 L* Magnesium 1.2 L Total Bilirubin AST ALT Alkaline Phosphatase Troponin I Less than 0.02 L Total Protein 4.1 L Albumin Urine Color Urine Clarity Urine pH Ur Specific Friendship Urine Protein Urine Glucose (UA) Urine Ketones Urine Occult Blood Urine Nitrate Urine Bilirubin Urine Urobilinogen Ur Leukocyte Esterase Urine RBC Urine WBC Ur Squamous Epith Cells Urine Bacteria Urine Mucus Micro UA Comment Urine Culture Comments 02/20/18 02/21/18 02/21/18 17:11 01:40 06:08 WBC 5.0 RBC 3.60 L Hgb 10.2 L Hct 31.1 L MCV 86.5 MCH 28.4 MCHC 32.8 RDW 15.2 Plt Count 225 MPV 9.7 Neut % (Auto) 53.5 Lymph % (Auto) 31.5 Sullivan % (Auto) 7.0 Eos % (Auto) 6.2 H Baso % (Auto) 1.8 Neut # (Auto) 2.7 Lymph # (Auto) 1.6 Sullivan # (Auto) 0.3 Eos # (Auto) 0.3 Baso # (Auto) 0.1 WBC Differential . Differential Comment Auto diff final Sodium 141 D Potassium 3.7 D Chloride 108 H D Carbon Dioxide 26.3 Anion Gap 7 BUN 19 H Creatinine 0.96 Estimated GFR 58 L Random Glucose 104 Calcium 9.0 D Prot Corrected Calcium Magnesium Total Bilirubin 0.5 AST 26 ALT 19 Alkaline Phosphatase 102 Troponin I Total Protein 7.2 D Albumin 3.6 Urine Color Yellow Urine Clarity Hazy H Urine pH 5.0 Ur Specific Friendship 1.016 Urine Protein Negative Urine Glucose (UA) Negative Urine Ketones 20 Urine Occult Blood Negative Urine Nitrate Negative Urine Bilirubin Negative Urine Urobilinogen Less than 2 Ur Leukocyte Esterase Trace H Urine RBC 1 Urine WBC 8 H Ur Squamous Epith Cells <1 Urine Bacteria Rare H Urine Mucus Few H Micro UA Comment Culture not ind Urine Culture Comments Culture not ind 02/21/18 06:08 WBC RBC Hgb Hct MCV MCH MCHC RDW Plt Count MPV Neut % (Auto) Lymph % (Auto) Sullivan % (Auto) Eos % (Auto) Baso % (Auto) Neut # (Auto) Lymph # (Auto) Sullivan # (Auto) Eos # (Auto) Baso # (Auto) WBC Differential Differential Comment Sodium 145 Potassium 3.9 Chloride 112 H Carbon Dioxide 26.4 Anion Gap 7 BUN 17 Creatinine 0.71 Estimated GFR 82 L Random Glucose 104 Calcium 8.6 Prot Corrected Calcium Magnesium Total Bilirubin 0.5 AST 18 ALT 17 Alkaline Phosphatase 88 Troponin I Total Protein 6.3 L D Albumin 3.1 L Urine Color Urine Clarity Urine pH Ur Specific Friendship Urine Protein Urine Glucose (UA) Urine Ketones Urine Occult Blood Urine Nitrate Urine Bilirubin Urine Urobilinogen Ur Leukocyte Esterase Urine RBC Urine WBC Ur Squamous Epith Cells Urine Bacteria Urine Mucus Micro UA Comment Urine Culture Comments Assessment and Plan - Assessment (1) Dehydration Code(s): E86.0 - Dehydration Status: Resolved (2) Acute hypernatremia Code(s): E87.0 - Hyperosmolality and hypernatremia Status: Resolved (3) Hypokalemia Code(s): E87.6 - Hypokalemia Status: Resolved - Plan 67 YOWF with no significant PMH admitted yesterday for acute dehydration. 1. Dehydration, heat exhaustion - Pt presenting with somnolence and lightheadedness after spending all day outside in the heat - Temps have been normal - Given IV hydration overnight - Symptoms improved - Counseled to stay well-hydrated 2. Hypokalemia, resolved - K+ 2.1 on admission, up to 3.9 this AM after IV fluids 3. Hypernatremia - Na 151 on admission, down to 145 this AM - Resolved with IV fluids Dispo: Medically clear for d/c, case management consulted to assist with social services aide given recent eviction
--- NOTE | 2018-02-21 15:18 | ECG ---
Date Performed: 02/20/2018 Time Performed: 15:10:17 PTAGE: 67 years EKG: Sinus rhythm INCOMPLETE RIGHT BUNDLE BRANCH BLOCK MINIMAL ST DEPRESSION Since previous tracing, no significant ch eleuterio noted BORDERLINE ECG PREVIOUS TRACING : 08/11/2016 17.08.24 DOCTOR: Angel Cheek Interpretating Date/Time 02/21/2018 15:17:06
== END 2018-02-21 15:28 | disposition home or self-care (01) ==
LOC: NEPE 14:50 → NEDA 18:21 → N04 18:39
PROVIDERS: ADMIT Family Medicine; ATTEND Family Medicine